=== PATIENT | male | born 1950 | race Caucasian/White ===

== ENCOUNTER → 2016-07-19 | Outpatient (CLI) | payer BC ==
[~2016-07-19] MED LIST: OMEP40CA5 PO
--- NOTE | 2016-07-19 15:29 | KCIC ---
Ultrasound thyroid Indication: Reason For Study Reason: NECKPAIN, ENLARGED LYMPH NODES ONRIGHT NECK AREA / Spl. Instructions: / History: Technique: Multiple real-time grayscale sonographic images were obtained over the thyroid. Findings: The right lobe of the thyroid measures 4.8 x 1.4 x 1.8 centimeters. The isthmus measures 0.2 centimeters. The left lobe measures 4.2 x 1.1 x 1.3 centimeters. The thyroid echotexture is within normal limits. No identifiable nodules are identified. There are bilateral cervical lymph nodes, all of which demonstrate normal morphologic architecture. Impression: Thyroid ultrasound within normal limits. Electronically signed by: Caden Thibodeaux (Jul 19, 2016 15:27:57)
== END | disposition home or self-care (01) ==
LOC: KCIC US 09:46
PROVIDERS: ATTEND Internal Medicine Gastroenterology
DX: R59.9 Enlarged lymph nodes, unspecified (principal)
CPT/HCPCS: 76536

== ENCOUNTER → 2021-03-31 | Outpatient (CLI) | payer MEDICARE ==
[~2021-03-31] MED LIST changes: -OMEP40CA5 PO; +OMEP40CA7 PO
--- NOTE | 2021-03-31 15:35 | RAD ---
EXAMINATION: RIGHT LOWER EXTREMITY - UNILATERAL VENOUS DOPPLER. Technique: Ultrasound evaluation of the right lower extremity was performed from the groin to the upp er calf with he scale, spectral and color doppler evaluation. Indication: Leg swelling Comparison: None Findings: There is normal venous flow and compressibility of right common femoral vein, femoral vein, popliteal vein, and visualized proximal calf veins. Impression: No evidence for deep vein thrombosis of right lower extremity from the level of the calf veins to the groins. Electronically signed by: Rich Hernandez MD (03/31/2021 3:33 PM) LEYDI
== END ==
LOC: US 14:09
PROVIDERS: ATTEND Family Medicine
DX: M79.661 Pain in right lower leg (principal); Z87.898 Personal history of other specified conditions
CPT/HCPCS: 93971

== ENCOUNTER 2021-06-17 07:33 | Day surgery (SDC) | payer MEDICARE ==
[~2021-06-17] VITALS: Ht 167.6 cm; Wt 77.2 kg
[~2021-06-17 07:33] MED LIST changes: +HYDROmorphone 2 MG/ML INJ. IVP PRN; +IV RINGERS,LACTATED 1000ML 1,000 ML IV SCH; +MORPHINE SULFATE 2 MG/ML INJ. IVP PRN; +PROCHLORPERAZINE 10 MG/2 ML VIAL. IVP PRN; +fentaNYL PF VIAL 100 MCG/2 ML VIAL IVP PRN
[2021-06-17] MEDS ORDERED: ACETAMINOPHEN 500 MG TABLET PO ONE (08:15)
[2021-06-17] MEDS ORDERED: PROPOFOL 10 MG/ML (20ML) VIAL. IV ONE (08:29)
[2021-06-17] MEDS ORDERED: ONDANSETRON PF 4 MG/2 ML VIAL. ONE (08:30)
[2021-06-17] MEDS ORDERED: DEXAMETHASONE SOD PHOS 4 MG/ML VIAL ONE (08:30)
[2021-06-17] MEDS ORDERED: ceFAZolin 2GM PREMIX 2 GM/50 ML BAG IV ONE (08:30)
[2021-06-17] MEDS ORDERED: fentaNYL PF VIAL 100 MCG/2 ML VIAL ONE ×2 (08:30→10:52)
[2021-06-17] MEDS ORDERED: LIDOCAINE 1% PF 5 ML VIAL. ONE (08:30)
--- NOTE | 2021-06-17 08:47 | PDOC1 ---
History and Physical Date of Admission Date of Admission DATE: 06/17/21 TIME: 08:44 Identification/Chief Complaint Chief Complaint Bilateral groin pain Source Source: Chart review, Patient History of Present Illness History of Present Illness 70-year-old male with complaints of bilateral groin pain and bulges with the right side greater than left Past Medical History Cardiovascular: No pertinent hx Pulmonary: No pertinent hx GI: GERD Heme/Onc: No pertinent hx Hepatobiliary: No pertinent hx Psych: No pertinent hx Rheumatologic: No pertinent hx Infectious disease: No pertinent hx ENT: No pertinent hx Renal/: No pertinent hx Endocrine: No pertinent hx Dermatology: No pertinent hx Past Surgical History Past Surgical History: Cholecystectomy, Cataract Removal Family History Family History: No Significant Social History Smoke: No ALCOHOL: rare Drugs: None Current Medications Current Medications Current Medications Fentanyl Citrate (Fentanyl 2ml Vial) 25 mcg PRN Q5MIN PRN IVP MILD PAIN 1-3; Start 06/17/21 at 06:00; Stop 06/18/21 at 05:59 Fentanyl Citrate (Fentanyl 2ml Vial) 50 mcg PRN Q5MIN PRN IVP MODERATE PAIN 4- 6; Start 06/17/21 at 06:00; Stop 06/18/21 at 05:59 Morphine Sulfate (Morphine Sulfate) 1 mg PRN Q10MIN PRN IVP SEVERE PAIN 7-10; Start 06/17/21 at 06:00; Stop 06/18/21 at 05:59 Ringer's Solution 1,000 ml @ 30 mls/hr Q24H IV Last administered on 06/17/21at 08:31; Start 06/17/21 at 06:00; Stop 06/17/21 at 17:59 Hydromorphone HCl (Dilaudid) 0.5 mg PRN Q10MIN PRN IVP SEVERE PAIN 7-10, 2nd CHOICE; Start 06/17/21 at 06:00; Stop 06/18/21 at 05:59 Prochlorperazine Edisylate (Compazine) 5 mg PACU PRN PRN IVP NAUSEA, MRX1; Start 06/17/21 at 06:00; Stop 06/18/21 at 05:59 Cefazolin Sodium/ Dextrose 50 ml @ 100 mls/hr 1X ONCE IV ; Start 06/17/21 at 08:15; Stop 06/17/21 at 08:44 Acetaminophen (Tylenol) 1,000 mg 1X ONCE PO Last administered on 06/17/21at 08:15; Start 06/17/21 at 08:15; Stop 06/17/21 at 08:17; Status DC Active Scripts Active Reported Omeprazole 40 Mg Capsule.dr 40 Mg PO DAILY Allergies Allergies: Coded Allergies: amoxicillin (Verified Allergy, Intermediate, rash, 06/17/21) ROS Genitourinary: YES Pain (Bilateral groin) Physical Exam General: Alert, Oriented X3, Cooperative, No acute distress HEENT: Atraumatic, EOMI Lungs: Clear to auscultation, Normal air movement Heart: RRR, no murmurs Abdomen: Normal bowel sounds, Soft, No tenderness Male Genitals Exam: hernia (Bilateral inguinal hernias) Rectal Exam: not examined Extremities: No edema Skin: No significant lesion Neuro: Normal speech Psych/Mental Status: Mental status NL Vitals Vitals Vital Signs Date Time Temp Pulse Resp B/P (MAP) Pulse Ox O2 Delivery O2 Flow Rate FiO2 06/17/21 08:21 98.1 84 20 121/81 96 Room Air 98.1 VTE Prophylaxis Ordered VTE Prophylaxis Devices: Yes VTE Pharmacological Prophylaxi: Contraindicated Assessment/Plan Assessment/Plan Bilateral inguinal hernias plan robotic assisted laparoscopic repair bilaterally Justifications for Admission Other Justification CROW HUMPHREYS MD Jun 17, 2021 08:47
[2021-06-17] MEDS ORDERED: BUPIVACAINE-EPI 0.25% 30 ML VIAL KIT. ONE (08:50)
[2021-06-17] MEDS ORDERED: MINERAL OIL for SURGERY 10 ML VIAL. MC ONE ×4 (08:50→09:34)
[2021-06-17] MEDS ORDERED: SUGAMMADEX SODIUM 200 MG/2 ML VIAL. IVP ONE (09:30)
[2021-06-17] MEDS ORDERED: BUPIVACAINE-EPI 0.25% 30 ML VIAL KIT. INJ ONE (09:34)
--- NOTE | 2021-06-17 10:17 | PDOC4 ---
Operative Note Operative Note Date: June 17, 2021 at 10:14 AM Preoperative diagnosis: Bilateral inguinal hernia Postoperative diagnosis: Same Procedure: Robotic assisted laparoscopic bilateral inguinal hernia repair with mesh Surgeon: Andrea Specimen: None Dictation: Patient is a 70-year-old gentleman with complaints of bilateral inguinal bulges and pain. Procedure of robotic assisted laparoscopic bilateral inguinal hernia repair with mesh was explained to the patient detail risk benefits were also discussed including bleeding infection injury to intra- abdominal contents possible necessitating further open operations alternatives to this procedure also discussed with the patient who seemed to understand and gave both verbal and written consent had a procedure performed. Patient was taken to the operating room placed in the supine position general anesthesia was initiated once patient was sleeping and intubated he was placed in the lithotomy positioning and his abdomen was prepped and draped usual sterile fashion using ChloraPrep. An area just above the umbilicus was injected with quarter percent Marcaine with epinephrine incision was made Levlite scalpel and a varies needle was placed within the abdomen creating pneumoperitoneum once this was complete 8 mm da Solomon port was placed in the 8 mm da Solomon camera was placed within the abdomen which was inspected there is noted bilateral direct inguinal hernias. 8 mm da Solomon port was placed in the right midabdomen and a millimeter da Solomon ports placed in left midabdomen da Solomon robot is brought and docked all port sites surgeon went to the robotic console using a grasper and Endo Catina scissors the peritoneum on the right side was incised and a flap propagated inferiorly reducing the hernia sac and contents. Similarly the left side was incised and a flap propagated inferiorly reducing the hernia sac and contents. Large Bard 3D max mesh for both right and left were then placed over the hernia defects and the peritoneum was closed over the mesh with a running 2 OV lock absorbable suture. Sutures removed from the abdomen the da Solomon robot was undocked removed from the surgical field the pneumoperitoneum was reduced all ports were removed. All port sites was closed with 4-0 subcuticular Monocryl Mastisol Steri-Strips and island dressings were applied. Patient was awakened and extubated in the operating room taken to recovery in stable condition all sponge instrument needle counts listed as correct estimated blood loss 5 mL CROW HUMPHREYS MD Jun 17, 2021 10:17
[2021-06-17] MEDS ORDERED: OXYC-325 PO (10:19)
--- NOTE | 2021-06-17 10:20 | DISCH ---
DISCHARGE INSTRUCTIONS Condition on Discharge Condition on Discharge: Stable Activity After Discharge Activity Instructions for Disc: Avoid exertion Other activity instructions: No lifting more than 20 pounds for 2 weeks Diet after Discharge Diet after Discharge: Regular Wound Incision Care Other wound/incision instructi: Minerva shower in 24 hours Contacting the [facility] after DC Call your doctor for: If your condition worsens Follow-Up Follow up with: Dr. Humphresy in 2 weeks CROW HUMPHREYS MD Jun 17, 2021 10:20
[2021-06-17] MEDS ORDERED: KETOROLAC 30 MG/ML VIAL. ONE (10:48)
[2021-06-17] MEDS: fentaNYL PF VIAL 100 MCG/2 ML VIAL IVP PRN ×2 (11:10→11:23)
[2021-06-17] MEDS ORDERED: KETOROLAC 30 MG/ML VIAL. IVP ONE (11:15)
[2021-06-17] MEDS ORDERED: oxyCODONE/APAP 5/325 1 TAB TABLET PO ONE (11:30)
[2021-06-17 12:00] VITALS: BP 125/73
== END 2021-06-17 12:51 | disposition home or self-care (01) ==
LOC: SURG 07:33
PROVIDERS: ATTEND Surgery
DX: K40.20 Bilateral inguinal hernia, without obstruction or gangrene, not specified as recurrent (principal); K21.9 Gastro-esophageal reflux disease without esophagitis; M19.90 Unspecified osteoarthritis, unspecified site; Z90.49 Acquired absence of other specified parts of digestive tract; Z98.890 Other specified postprocedural states; Z79.899 Other long term (current) drug therapy; Z88.1 Allergy status to other antibiotic agents
CPT/HCPCS: 49650; A4213; A4364; A4930; A6219; C1781; J3490; A4657; J0690; J1100; J1885; J2405; J2704; J3010